=== PATIENT | male | born 1985 | race Caucasian/White ===

== ENCOUNTER 2021-12-26 19:54 | Emergency (ER) | payer BC ==
[~2021-12-26] VITALS: Ht 175.3 cm; Wt 80.0 kg
[~2021-12-26 19:54] MED LIST: IBU600T
[2021-12-26] MEDS ORDERED: KETOROLAC TROMETH 30 MG/ML 1ML VIAL IM ONE (23:30)
[2021-12-26] MEDS ORDERED: methylPREDNISolone SOD SUCC 125 MG/2 ML VL IM ONE (23:30)
[2021-12-26 23:32] VITALS: BP 132/87
[2021-12-27] MEDS ORDERED: IBUP800T26 PO ×2 (00:40→00:50)
[2021-12-27] MEDS ORDERED: CYCL-839 PO ×2 (00:40→00:50)
== END 2021-12-27 01:08 | disposition home or self-care (01) ==
LOC: ER 19:54
DX: S33.5XXA Sprain of ligaments of lumbar spine, initial encounter (principal); Z79.1 Long term (current) use of non-steroidal anti-inflammatories (NSAID); X58.XXXA Exposure to other specified factors, initial encounter; Y93.89 Activity, other specified; Y92.89 Other specified places as the place of occurrence of the external cause; Y99.8 Other external cause status
CPT/HCPCS: 72131; 96372; 99284; J1885; J2930